=== PATIENT | male | born 1980 | race Caucasian/White ===

== ENCOUNTER 2017-01-01 02:26 | Emergency (ER) | payer OTHER ==
[~2017-01-01] VITALS: Ht 180.3 cm; Wt 96.1 kg
[2017-01-01 02:26] VITALS: BP 123/59
[2017-01-01] MEDS ORDERED: FLUORESCEIN 1MG EYE STRIP. ONE (02:39)
[2017-01-01] MEDS ORDERED: FLUORESCEIN 1MG EYE STRIP. OS ONE (03:00)
[2017-01-01] MEDS ORDERED: TETRACAINE 0.5% OPHTH SOLUTION 4ML BOTTLE. OS ONE (03:00)
--- NOTE | 2017-01-01 03:00 | PHYS DOC ---
General Chief Complaint: EYE PROBLEMS Stated Complaint: EYE PROBLEM Time Seen by MD: 02:24 Source: patient Exam Limitations: no limitations Problems: History of Present Illness Timing/Duration: abrupt Severity: moderate Location: eye (L) Prearrival Treatment: no prearrival treatment, other (the counter Visine) Modifying Factors: worse with activity Associated Symptoms: denies symptoms Allergies: Coded Allergies: No Known Drug Allergies (Unverified , 04/02/16) Past Medical History Medical History: no pertinent history Surgical History: no surgical history Family History Significant Family History: no pertinent family hx Social History Smoker: non-smoker Alcohol: none Drugs: none Constitutional: no symptoms reported Eyes: denies blindness, denies blurred vision, denies drainage, denies decreased acuity, foreign body sensation inflammation paindenies photophobia Ears: no symptoms reported Nose: no symptoms reported Mouth: no symptoms reported Throat: no symptoms reported Respiratory: no symptoms reported Skin: no symptoms reported All Other Systems: Reviewed and Negative Physical Exam General Appearance: mild distress Eyes: left eye EOMI, left eye PERRL, left eye conjunctival inflammation (noted conjunctival injection with mild chemosis from these 3:00 to 9:00 position), left eye corneal abrasion (small corneal abrasion noted at the 9 o'clock position), left eye normal inspection Nose: normal inspection Mouth/Throat: normal mouth inspection Neck: non-tender Cardiovascular/Respiratory: regular rate, rhythm, no M/R/G, normal peripheral pulses Skin: normal color, warm/dry Eye Procedure Eye Procedure : Alcaine Drops Administered: No (tetracaine drops and stained) Eye FB Removal: other (foreign body noted.) Progress Patient has area of conjunctival inflammation without noted foreign body underneath the eyelid. Patient is a small corneal abrasion at the 9 o'clock position on the bulbar conjunctiva. 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 No foreign bodies noted on exam. Patient's sensation of foreign body pain resolved completely with the usage of tetracaine. There is small corneal abrasion with notes of globe rupture lenses intact anterior chambers quiet visual acuities are within normal limits 20/20 in each eye. There is no foreign body underneath the eyelid as well. Patient will be provided a course of an ointment, Cyclogyl and Tylenol for his discomfort. 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 NILES HERNANDEZ MD Jan 01, 2017 03:00
[2017-01-01] MEDS ORDERED: ERYTHROMYCIN 0.5% OPHTH OINTMENT 1GM TUBE. OS ONE (03:30)
== END 2017-01-01 03:30 | disposition home or self-care (01) ==
LOC: ER 02:26
DX: S05.02XA Injury of conjunctiva and corneal abrasion without foreign body, left eye, initial encounter (principal); X58.XXXA Exposure to other specified factors, initial encounter; Y93.89 Activity, other specified; Y99.8 Other external cause status; Y92.89 Other specified places as the place of occurrence of the external cause
CPT/HCPCS: 99283